=== PATIENT | female | born 1940 | race Asian ===

== ENCOUNTER 2019-05-01 08:58 | Emergency (ER) | payer OTHER, MEDICAID ==
[~2019-05-01] VITALS: Ht 152.4 cm; Wt 47.6 kg
[2019-05-01 09:14] VITALS: BP_SYST 161
[2019-05-01 11:16] VITALS: BP_SYST 160
== END 2019-05-01 10:16 | disposition home or self-care (01) ==
LOC: SED 08:58
DX: S16.1XXA Strain of muscle, fascia and tendon at neck level, initial encounter (principal); S39.012A Strain of muscle, fascia and tendon of lower back, initial encounter; Z88.8 Allergy status to other drugs, medicaments and biological substances; V43.52XA Car driver injured in collision with other type car in traffic accident, initial encounter; Y93.89 Activity, other specified; Y92.410 Unspecified street and highway as the place of occurrence of the external cause; Y99.8 Other external cause status
CPT/HCPCS: 72040-TC; 72100-TC; 99283